=== PATIENT | male | born 1985 | race Caucasian/White ===

== ENCOUNTER 2018-06-01 17:02 | Emergency (ER) | payer OTHER ==
[~2018-06-01] VITALS: Ht 177.8 cm; Wt 70.3 kg
[~2018-06-01 17:02] MED LIST: BACTRIM DS TAB1 EACH PO; TRAMADOL 50 MG50 MG PO
[2018-06-01] MEDS ORDERED: CLONAZEPAM 1 MG1 M1 PO (17:38)
[2018-06-01] MEDS ORDERED: ADDERALL 30 MG30 MG PO (17:38)
[2018-06-01] MEDS ORDERED: QUETIAPINE FUM100 MG PO (17:39)
[2018-06-01 17:51] LABS: ABSOLUTE BASOPHILS 0.1 thou/uL (0.0-0.2); ABSOLUTE LYMPHOCYTES 2.8 thou/uL (0.8-5.3); ABSOLUTE MONOCYTES 0.8 thou/uL (0.0-1.2); ABSOLUTE NEUTROPHILS 7.1 thou/uL (1.6-8.1); BASOPHILS 0.8 %; EOSINOPHILS 0.4 %; HEMATOCRIT 50.2 % (42.0-52.0); HEMOGLOBIN 16.9 gm/dL (14.0-18.0); LYMPHOCYTES 25.7 %; MCH 28.7 pg (26.0-34.0); MCHC 33.7 g/dL (28.0-37.0); MCV 85.3 fL (80.0-100.0); MONOCYTES 7.5 %; MPV 8.7 fl. (7.2-11.1); NUCLEATED RBCS 0 /100WBC; PLATELET COUNT* 415 thou/uL (150-400); POLYS 65.6 %; RBC 5.89 mil/uL (4.50-6.00); RDW-CV 17.4 % (10.5-14.5); WBC 10.8 thou/uL (4.0-11.0)
[2018-06-01 18:01] LABS: ANION GAP 14 mmol/L (7-16); BUN 12 mg/dL (7-18); CALCIUM 9.5 mg/dL (8.5-10.1); CHLORIDE 104 mmol/L (98-107); CO2 19 mmol/L (21-32); CREATININE 1.6 mg/dL (0.6-1.3); GLUCOSE 88 mg/dL (70-99); POTASSIUM 3.9 mmol/L (3.5-5.1); SODIUM 137 mmol/L (136-145)
[2018-06-01 18:06] LABS: ALBUMIN 3.7 g/dL (3.4-5.0); ALKALINE PHOSPHATASE 58 U/L (46-116); SGOT 27 U/L (15-37); SGPT 22 U/L (30-65); TOTAL BILIRUBIN 0.3 mg/dL (<0.1-1.0); TOTAL PROTEIN 7.6 g/dL (6.4-8.2); TROPONIN-I LEVEL <0.06 ng/mL (<0.06)
[2018-06-01 18:43] LABS: URINE BILIRUBIN NEGATIVE (Negative); URINE BLOOD NEGATIVE (Negative); URINE CLARITY CLEAR; URINE COLOR YELLOW; URINE GLUCOSE-RANDOM NEGATIVE (Negative); URINE KETONES NEGATIVE (Negative); URINE LEUKOCYTES NEGATIVE (Negative); URINE NITRITE NEGATIVE (Negative); URINE PROTEIN NEGATIVE (Negative); URINE UROBILINOGEN 0.2 E.U./dl (0.2-1.0)
[2018-06-01 18:51] LABS: AMP/METHAMP POSITIVE (Negative); BARBITURATES Negative (Negative); BENZODIAZEPINES Negative (Negative); COCAINE Negative (Negative); METHADONE Negative (Negative); OPIATES Negative (Negative); PCP Negative (Negative); THC Negative (Negative)
[2018-06-01 19:12] VITALS: BP 110/71
--- NOTE | 2018-06-02 16:23 | EKG ---
[place] [address] ELECTROCARDIOGRAM REPORT Name: KRUPA HARDWICK [id number] Admission: 06/01/18 Attend Phys: Discharge: 06/01/18 Date of : 85 Report #: [id number] THIS REPORT FOR: //name// [facility] ED Test Date: 2018-06-01 Test Time: 18:16:30 Pat Name: KRUPA HARDWICK Department: Room: Gender: M Address Change Clerk: ALEKSANDER : 1985 Requested By: Yessi Joseph Order Number: [id number] MD: Cosme Moore Measurements Intervals [place] Rate: 83 P: 18 AR: 110 QRS: 36 QRSD: 80 T: -54 QT: 310 QTc: 365 Interpretive Statements Sinus rhythm Borderline short AR interval Nonspecific T abnormalities, inferior leads Compared to ECG 11/17/2006 03:30:36 T-wave abnormality now present Early repolarization no longer present Electronically Signed On 06-02-2018 16:23:21 CDT by Cosme Moore [email or web address] <ELECTRONICALLY SIGNED> By: Cosme Moore MD, [facility] 06/02/18 1623 [id number] 15 Cosme Moore MD, [facility] /EPI
== END 2018-06-01 19:15 | disposition home or self-care (01) ==
LOC: M.ERS 17:02
PROVIDERS: Nurse Practitioner Family
DX: F43.0 Acute stress reaction (principal); Y04.8XXA Assault by other bodily force, initial encounter; Y93.89 Activity, other specified; Y92.89 Other specified places as the place of occurrence of the external cause; Y99.8 Other external cause status

== ENCOUNTER 2019-06-30 06:33 | Inpatient (IN) | payer OTHER ==
[2019-06-30] VITALS (21 sets, daily range): BP systolic 104–138; BP diastolic 41–98
[~2019-06-30] VITALS: Ht 162.6 cm; Wt 86.6 kg
[~2019-06-30 06:33] MED LIST changes: +ADDERALL 30 MG30 MG PO; +CLONAZEPAM 1 MG1 M1 PO; +QUETIAPINE FUM100 MG PO
[2019-06-30 06:48] LABS: ABSOLUTE BASOPHILS 0.1 thou/uL (0.0-0.2); ABSOLUTE EOSINOPHILS 0.1 thou/uL (0.0-0.7); ABSOLUTE LYMPHOCYTES 1.5 thou/uL (0.8-5.3); ABSOLUTE MONOCYTES 0.9 thou/uL (0.0-1.2); ABSOLUTE NEUTROPHILS 8.9 thou/uL (1.6-8.1); BASOPHILS 0.9 %; HEMATOCRIT 43.2 % (42.0-52.0); HEMOGLOBIN 14.4 gm/dL (14.0-18.0); LYMPHOCYTES 12.9 %; MCH 30.6 pg (26.0-34.0); MCHC 33.4 g/dL (28.0-37.0); MCV 91.6 fL (80.0-100.0); MONOCYTES 7.8 %; MPV 8.2 fl. (7.2-11.1); NUCLEATED RBCS 0 /100WBC; PLATELET COUNT* 276 thou/uL (150-400); POLYS 77.4 %; RBC 4.72 mil/uL (4.50-6.00); RDW-CV 15.2 % (10.5-14.5); WBC 11.5 thou/uL (4.0-11.0)
[2019-06-30 06:56] LABS: CALCIUM 8.7 mg/dL (8.5-10.1); CREATININE 1.4 mg/dL (0.6-1.3); POTASSIUM 4.2 mmol/L (3.5-5.1)
[2019-06-30 07:01] LABS: ALBUMIN 3.5 g/dL (3.4-5.0); TOTAL BILIRUBIN 1.4 mg/dL (<0.1-1.0); TOTAL PROTEIN 6.9 g/dL (6.4-8.2)
[2019-06-30 07:51] LABS: URINE BLOOD NEGATIVE (Negative); URINE CLARITY CLEAR; URINE COLOR YELLOW; URINE GLUCOSE-RANDOM NEGATIVE (Negative); URINE KETONES 1+ (Negative); URINE LEUKOCYTES-REFLEX NEGATIVE (Negative); URINE NITRITE-REFLEX NEGATIVE (Negative); URINE PROTEIN NEGATIVE (Negative)
[2019-06-30 07:55] LABS: ICTOTEST (BILI CONFIRMATORY) Negative (Negative); URINE BILIRUBIN 1+ (Negative)
[2019-06-30 08:03] LABS: AMP/METHAMP POSITIVE (Negative); BARBITURATES Negative (Negative); BENZODIAZEPINES Negative (Negative); COCAINE Negative (Negative); METHADONE Negative (Negative); OPIATES POSITIVE (Negative); PCP Negative (Negative); THC Negative (Negative)
--- NOTE | 2019-06-30 08:50 | NUR ---
PT'S GIRLFRIEND STATES THAT SHE THINKS THE PATIENT HAS BEEN PRESCRIBED ADDERALL BUT DOES NOT THINK THE PATIENT TAKES IT.
--- NOTE | 2019-06-30 10:44 | EKG ---
[place] [address] ELECTROCARDIOGRAM REPORT Name: KRUPA HARDWICK Room: [address] ADM IN .R.#: [id number] Admission: 06/30/19 Attend Phys: Brian Landin MD Discharge: Date of : 85 Report #: [id number] THIS REPORT FOR: //name// [facility] ED Test Date: 2019-06-30 Test Time: 06:42:56 Pat Name: KRUPA HARDWICK Department: Room: [facility] Gender: M Multimedia Technician: : 1985 Requested By: Anderson Carson Order Number: [id number] MD: Sterling Urias Measurements Intervals [place] Rate: 102 P: 38 FL: 115 QRS: 40 QRSD: 75 T: -9 QT: 306 QTc: 399 Interpretive Statements Sinus tachycardia Borderline T abnormalities, inferior leads Compared to ECG 06/01/2018 18:16:30 Sinus rhythm no longer present T-wave abnormality still present Electronically Signed On 06-30-2019 10:44:22 CDT by Sterling Urias [email or web address] <ELECTRONICALLY SIGNED> By: Sterling Urias MD, [facility] 06/30/19 1044 [phone] Sterling Urias MD, [facility] /EPI
--- NOTE | 2019-06-30 15:15 | CON ---
[facility] [address] [place] [address] CONSULTATION Name: KRUPA HARDWICK Room: [address] IN M.R.#: [id number] Admission: 06/30/19 Attend Phys: Brian Landin MD Discharge: Date of : 85 Report #: [id number] THIS REPORT FOR: //name// CC: Brian Pearl Susan REQUESTING PHYSICIAN: rBian Landin M.D. REASON FOR CONSULTATION: Respiratory failure. DISCUSSION: The patient is a 33-year-old nonsmoking man who was brought to the Emergency Department early this morning. He was having trouble with his breathing. He was subsequently intubated by the ED physician and transferred over to the Intensive Care Unit on the ventilator. Since he is intubated, unable to obtain any history from the patient. He however was able to obtain information from his girlfriend that he lives with as well as his mother who had arrived. The patient apparently is a non-cigarette smoker. No prior history of known pulmonary disease. He does occasionally vape, when he does have drinks out with friends. He had been doing well. He is apparently quite healthy. He is on medications for anxiety and insomnia. He does see a psychiatrist. Known history of GERD. His girlfriend notes that yesterday evening, he was complaining of some choking feeling. She has seen him over the sink initially thought he was vomiting, but he notes he was feeling choked up and felt like his uvula was swollen. She was not aware of any fevers. He had only some small amount of secretions, which she expectorated. During the night, she did note at times he appeared to have more of a fluttering noise coming from his upper airway. He is typically a loud snore as well. He awoke early this morning stating that he could not breathe. She was going to take him to the hospital but as they had his 10-year-old child there, she had called his mother to come and get him. His mother came but due to the difficulty was having they actually stopped at the fire station. They brought him in via ambulance. He was evaluated in the Emergency Department here. The ED notes that he was "gurgling and in distress." Per Dr. Landin's notes, there were no lesions or swelling noted at the time of intubation in the ED but the ED physician has not yet finished his noted. He has no prior history of known pulmonary disease. He does have a lot of GI problems. Apparently was hospitalized several years ago due to significant constipation and GI issues over at [place]. Did have a variety of studies done. Subsequently, did have his gallbladder out. That did help some of his symptoms. However, he does continue with ongoing issue with reflux. He does p.r.n. Tums. He does not see a tool and gauge inspector. He does not use any recreational drugs. He is on Seroquel and clonazepam for his anxiety and issues with insomnia. He has also been on Adderall. His girlfriend notes that she wanted him to stop that, but she believes he still is intermittently taking [address] [place] [address] CONSULTATION Name: KRUPA HARDWICK Room: [address] M.R.#: [id number] Admission: 06/30/19 Attend Phys: Brian Landin MD Discharge: Date of : 85 Report #: [id number]. There are no smokers at home. His girlfriend notes that she was not feeling well the last couple of days, but was better now. His son has not been ill recently. PAST MEDICAL HISTORY: Remarkable for close head injury years ago. He has significant issue with anxiety and panic attacks. He does see a psychiatrist. He has had a prior tonsillectomy. He has had a prior cholecystectomy several years ago. Ongoing issues with GERD. FAMILY HISTORY: Negative for lung disease. SOCIAL HISTORY: He lives with a girlfriend. He does have a 10-year-old son. He works in construction. REVIEW OF SYSTEMS: Unable to obtain from the patient. Information was obtained from his girlfriend and his mother as noted above. They were not aware of any other syncopal episodes. Not had any fevers, chills or sweats at home. Not aware of any complaints of chest pain. PHYSICAL EXAMINATION: GENERAL APPEARANCE: Young man. He is intubated, also has an oral gastric tube in place. He does have a strong gag reflex. He is sedated with propofol and Versed. HEENT: Head is normocephalic. Sclerae nonicteric. Mucous membranes are moist. NECK: Negative for adenopathy. No JVD is noted. HEART: Regular. No murmur or gallop is heard. LUNGS: Reveal breath sounds to be somewhat coarse. A few rhonchi heard bilaterally. Excursion is equal. No subcutaneous emphysema is noted. ABDOMEN: Soft, without appreciable hepatosplenomegaly. There is no guarding or rebound tenderness. Femoral pulses are present. Lower extremities are negative for edema. No calf tenderness. SKIN: Warm and dry. No clubbing. Radial pulses are present. LABORATORY AND X-RAY FINDINGS: Chest x-ray showing endotracheal tube in position. On his CT chest that was done, shows endotracheal tube in position. Some bibasilar atelectasis seen. Does have a single emphysematous bleb noted in the left base. He also had his neck scanned. There was no significant edema or masses noted. Arterial blood gases are pending. On his chemistry profile, BUN is 17, creatinine of 1.4, potassium is 4.2. Total bilirubin is 1.4, AST 134, ALT of 87. Albumin 3.5. White blood cell count 11,500, hemoglobin 14.5, hematocrit 43.2 and platelets are normal. Drug screen was positive for opiates and amphetamines. IMPRESSION: [place] [address] CONSULTATION Name: RONENKRUPA Kam Room: [address] IN [facility]#: [id number] Admission: 06/30/19 Attend Phys: Brian Landin MD Discharge: Date of : 85 Report #: [id number] 1. Acute respiratory failure. He was intubated due to respiratory distress. Does not appear to have a significant pathology on his chest x-ray. May have had laryngospasm. He does have a history of reflux. It is possible it may have had significant enough acid reflux with resultant laryngospasm and airway edema. He was oxygenating well at this time with FiO2 down to less than 50%. 2. History of anxiety, has been on Seroquel and clonazepam. Also takes Adderall. 3. History of gastroesophageal reflux disease. RECOMMENDATIONS: 1. Follow up blood gases make ventilator changes as needed. 2. Agree with IV steroids and neb treatments. 3. Agree with Zosyn to cover for possible early aspiration. 4. At this point, we will keep him intubated. Sedation and p.r.n. pain medicine as needed. Once he has had 24 hours of steroids in, can then proceed with weaning trials. We will also do a "leak test" to ensure there is no significant edema noted in his airway. 5. Hopefully can successfully as extubate tomorrow. I did discuss in detail with his girlfriend and his mother. <ELECTRONICALLY SIGNED> By: Tatum Martinez MD 06/30/19 1515 [id number] Martinez MD /nt
[2019-06-30 15:38] LABS: BE -6.4 mmol/L (-2 to +3); PCO2 29.3 mmHg (35.0-45.0); pH 7.384 (7.340-7.450)
[2019-06-30 15:41] LABS: PO2 151.1 mmHg (75.0-100.0)
--- NOTE | 2019-06-30 18:15 | NUR ---
PT RECEIVED FROM ER AT 1000. UNDER VENT SUPPORT, FIO2 TO 30%. PT AGITATED AND MOVING HIS LEGS. SEDATION INCREASED TO PROPOFOL AT 50 MCG/KG/MIN AND VERSED AT 6 MG/HR. NS AT 100 MLS/HR. VSS. OG AT LIS. GOOD OUTPUT. FAMILY AT THE BEDSIDE. WEANING TRIAL PLANNED FOR TOMORROW.
[2019-07-01] VITALS (21 sets, daily range): BP systolic 96–153; BP diastolic 41–70
[2019-07-01 03:47] LABS: HEMOGLOBIN 13.9 gm/dL (14.0-18.0); MCH 31.3 pg (26.0-34.0); MCHC 33.8 g/dL (28.0-37.0); MCV 92.6 fL (80.0-100.0); MPV 8.4 fl. (7.2-11.1); NUCLEATED RBCS 0 /100WBC; PLATELET COUNT* 282 thou/uL (150-400); RBC 4.43 mil/uL (4.50-6.00); RDW-CV 15.6 % (10.5-14.5); WBC 9.9 thou/uL (4.0-11.0)
[2019-07-01 04:01] LABS: CALCIUM 8.2 mg/dL (8.5-10.1); POTASSIUM 4.9 mmol/L (3.5-5.1)
--- NOTE | 2019-07-01 06:01 | NUR ---
ASSUMED CARE AT 1900H, ON VENT AT 30%. WITH SEDATION OF VERSED AND PROPOFOL.NO DISTRESS NOTED.TO START VACATION SEDATION.FOR WEANING TRIAL TODAY AT 8AM.CONTINUE MONITORING AND TOWARDS GOAL.
[2019-07-01 06:26] LABS: ABSOLUTE LYMPHOCYTES 0.3 thou/uL (0.8-5.3); ABSOLUTE MONOCYTES 0.1 thou/uL (0.0-1.2); ABSOLUTE NEUTROPHILS 9.5 thou/uL (1.6-8.1); ANISOCYTOSIS 1+; PLATELET ESTIMATE ADEQUATE; POIKILOCYTOSIS 1+
--- NOTE | 2019-07-01 08:10 | NUR ---
PT EXTUBATED AT 0745, EXTUBATION UNEVENTFUL. O2 SUPPORT NC 2L/MIN.
--- NOTE | 2019-07-01 19:16 | NUR ---
O2 SATS >92% IN RA. VSS. PT ANXIOUS AND TEARFUL AT TIMES, EMOTIONAL SUPPORT PROVIDED. COUGH SPELLS AT TIMES. COMPLAINS OF SORE THROAT, THROAT LOZENZE GIVEN, NO HELP. PROVIDER NOTIFIED AND ORDERS RECEIVED. SOMERS'S CATH OUT. VOIDED POST CATH. TOLERATED DIET.
[2019-07-02] VITALS: BP 138/66
[2019-07-02 04:01] VITALS: BP 152/60
[2019-07-02 04:26] LABS: ABSOLUTE LYMPHOCYTES 0.7 thou/uL (0.8-5.3); ABSOLUTE MONOCYTES 0.4 thou/uL (0.0-1.2); ABSOLUTE NEUTROPHILS 11.8 thou/uL (1.6-8.1); BASOPHILS 0.4 %; HEMATOCRIT 40.6 % (42.0-52.0); HEMOGLOBIN 13.4 gm/dL (14.0-18.0); LYMPHOCYTES 5.4 %; MCH 30.7 pg (26.0-34.0); MCHC 33.1 g/dL (28.0-37.0); MONOCYTES 3.4 %; MPV 8.4 fl. (7.2-11.1); NUCLEATED RBCS 0 /100WBC; PLATELET COUNT* 296 thou/uL (150-400); POLYS 90.8 %; RBC 4.36 mil/uL (4.50-6.00); RDW-CV 15.5 % (10.5-14.5)
[2019-07-02 04:43] LABS: CALCIUM 8.6 mg/dL (8.5-10.1); CREATININE 1.1 mg/dL (0.6-1.3); POTASSIUM 4.4 mmol/L (3.5-5.1)
--- NOTE | 2019-07-02 05:37 | NUR ---
ASSUMED CARE AT 1900H, ON ROOM AIR AND ANXIOUS AND COMPLAINING ALL THE TIME OF SORETHROAT.PSYCH MEDS GIVEN AND IT HELPS A LITTLE BIT.HE SAID, HIS TAKING SEREQUEL 300MG.PRN PAIN MEDS GIVEN.PT ATE HIS SNACK BOX AND SERBETS, TOLERATED.NO DISTRESS NOTED.
[2019-07-02] MEDS ORDERED: AUGMENTIN 875-1 EACH PO (08:22)
[2019-07-02] MEDS ORDERED: PROTONIX40 M1 PO (08:23)
[2019-07-02 08:25] VITALS: BP 152/60
--- NOTE | 2019-07-02 08:52 | NUR ---
VSS.METALLURGICAL LABORATORY ASSISTANT IN PLACE.PT OK FOR DISCHARGE.DISCHARGE PAPERWORK COMPLETED AND GIVEN TO THE PT.IV REMOVED.SCRIPTS GIVEN WITH EDUCATION.PT WALKED OUT BY NURSING STAFF TO PERSONAL VEHICLE.
== END 2019-07-02 08:59 | disposition home or self-care (01) | DRG 208 ==
LOC: M.ERS 06:33 → M.TBA-ER 07:11 → M.ICU 07:11
PROVIDERS: Emergency Medicine Emergency Medical Services; Family Medicine; Internal Medicine Pulmonary Disease; ADMIT Internal Medicine
PROC: 5A1945Z Respiratory Ventilation, 24-96 Consecutive Hours (ICD-10-PCS; principal; 2019-06-30)
PROC: 0BH17EZ Insertion of Endotracheal Airway into Trachea, Via Natural or Artificial Opening (ICD-10-PCS; principal; 2019-06-30)
DX: J96.00 Acute respiratory failure, unspecified whether with hypoxia or hypercapnia (principal); F41.9 Anxiety disorder, unspecified; F19.10 Other psychoactive substance abuse, uncomplicated; K21.9 Gastro-esophageal reflux disease without esophagitis; F17.210 Nicotine dependence, cigarettes, uncomplicated; F41.0 Panic disorder [episodic paroxysmal anxiety]; Z28.21 Immunization not carried out because of patient refusal; Z90.49 Acquired absence of other specified parts of digestive tract; Z79.899 Other long term (current) drug therapy